=== PATIENT | male | born 1945 | race Caucasian/White ===

== ENCOUNTER 2018-06-02 09:43 | Observation (INO) | payer MEDICARE, BC ==
[2018-06-02] MEDS ORDERED: Ketorolac 30 MG/ML SDV IVPUSH PRN (10:51)
[2018-06-02 11:18] LABS: CHLORIDE,CL 102 mEq/L (98-106); SODIUM,NA 138 mEq/L (136-145)
[2018-06-02] MEDS ORDERED: Nitroglycerin 0.4 MG Tab.SL SL PRN (13:25)
[2018-06-02] MEDS ORDERED: Magnesium Hydroxide 400 MG/5 ML Susp 30 ML Cup PO PRN (13:26)
[2018-06-02] MEDS ORDERED: Temazepam 15 MG Cap PO PRN (13:26)
[2018-06-02] MEDS ORDERED: Ondansetron 4 MG/2 ML SDV IV PRN (13:26)
[2018-06-02] MEDS ORDERED: Acetaminophen 325 MG Tab PO PRN (13:26)
[2018-06-02] MEDS ORDERED: Sodium Chloride 0.9% 1,000 ML IV SCH ×2 (13:30→14:45)
[2018-06-02] MEDS ORDERED: Enoxaparin 40 MG/0.4 ML Syringe SUBCUT SCH (16:00)
[2018-06-02] MEDS ORDERED: Non-Formulary Medication 1 Each (Ticagrelor [Brilinta] 90 MG) PO SCH (20:00)
[2018-06-02] MEDS ORDERED: Simvastatin 20 MG Tab PO SCH (20:00)
[2018-06-02] MEDS: Metoprolol Tartrate 25 MG Tab PO SCH (21:24)
[2018-06-03] MEDS ORDERED: Aspirin 81 MG Tab.EC PO SCH (08:00)
[2018-06-03] MEDS ORDERED: Isosorbide Mononitrate 30 MG Tab.ER PO SCH (08:00)
[2018-06-03] MEDS ORDERED: ISOSORBIDE MONONITRATE 30 MG PO SCH (09:05)
[2018-06-03] MEDS: Metoprolol Tartrate 25 MG Tab PO SCH (09:23)
[2018-06-03] MEDS ORDERED: Polyethylene Glycol 3350 Powder 17 GM Packet PO ONE (09:30)
[2018-06-03] MEDS ORDERED: METOPROLOL TARTRATE 12.5 MG TAB PO SCH (10:00)
--- NOTE | 2018-06-03 11:29 | PCM.DCSUM1 ---
Discharge Summary - Discharge Data Discharge Date: 06/03/18 Discharge Disposition: Home, Self-Care 01 Condition: Good - Patient Summary/Data Consults: Consultations 06/02/18 14:45 Consult to Physical Therapy [PT Evaluation and Treatment] [CONS] Routine - Discharge Plan Home Medications: Home Meds Ascorbic Acid [Vitamin C] 500 mg PO DAILY 05/29/18 [History] Aspirin [Halfprin] 81 mg PO DAILY 05/29/18 [History] Fish Oil/[place]-3 Fatty Acids [Fish Oil 1,000 MG] 1,000 mg PO DAILY 05/29/18 [ History] Isosorbide Mononitrate [Isosorbide Mononitrate ER] 30 mg PO DAILY 05/29/18 [ History] Metoprolol Tartrate 12.5 mg PO BID 05/29/18 [History] Multivitamin [Daily Multiple Vitamin] 1 each PO DAILY 05/29/18 [History] Nitroglycerin 0.4 mg SL ASDIRECTED PRN 05/29/18 [History] Pravastatin Sodium [Pravachol] 40 mg PO BEDTIME 05/29/18 [History] Ticagrelor [Brilinta] 90 mg PO BID 05/29/18 [History] Patient Handouts: Coronary Artery Disease, Male - Patient Data Vitals - Most Recent: Last Vital Signs Temp 97.2 F 06/03/18 07:22 Pulse 89 06/03/18 07:22 Resp 18 06/03/18 07:22 BP 152/92 H 06/03/18 07:22 Pulse Ox 93 L 06/03/18 07:22 Weight - Most Recent: 220 lb Lab Results - Last 24 hrs: Laboratory Results - last 24 hr 06/03/18 Range/Units 08:50 Sodium 137 (136-145) mEq/L Potassium 3.8 (3.5-5.0) mEq/L Chloride 103 (98-106) mEq/L Carbon Dioxide 29 (21-32) mmol/L BUN 24 H (7-18) mg/dL Creatinine 1.6 H (0.7-1.3) mg/dL Est Cr Clr Drug Dosing 43.14 mL/min Estimated GFR (MDRD) 42 L (>=60) mL/min Glucose 91 (75-99) mg/dL Calcium 8.7 (8.4-10.1) mg/dL Magnesium 1.7 L (1.8-2.4) mg/dL Med Orders - Current: Current Medications Acetaminophen (Tylenol) 650 mg PO Q4H PRN PRN Reason: Pain (Mild 1-3)/fever Aspirin (Halfprin) 81 mg PO DAILY [facility] Last Admin: 06/03/18 09:13 Dose: 81 mg Enoxaparin Sodium (Lovenox) 40 mg SUBCUT Q24H [facility] Last Admin: 06/02/18 16:16 Dose: 40 mg Sodium Chloride (Normal Saline) 1,000 mls @ 50 mls/hr IV ASDIRECTED [facility] Last Admin: 06/02/18 14:56 Dose: 50 mls/hr Ketorolac Tromethamine (Toradol) 30 mg IVPUSH Q6H PRN PRN Reason: Pain Magnesium Hydroxide (Milk Of Magnesia) 30 ml PO Q12H PRN PRN Reason: Constipation Nitroglycerin (Nitrostat) 0.4 mg SL ASDIRECTED PRN PRN Reason: Chest Pain Non-Formulary Medication (Ticagrelor [Brilinta]) 90 mg PO BID [facility] Isosorbide (Mononitrate 30 Mg) 30 each PO DAILY [facility] Last Admin: 06/03/18 09:13 Dose: 30 each Metoprolol Tartrate (12.5 Mg Tab) 12.5 each PO BID@1000,2000 [facility] Last Admin: 06/03/18 09:13 Dose: 12.5 each Ondansetron HCl (Zofran) 4 mg IV Q6H PRN PRN Reason: Nausea/Vomiting Simvastatin (Zocor) 20 mg PO BEDTIME [facility] Last Admin: 06/02/18 21:24 Dose: Not Given Temazepam (Restoril) 15 mg PO BEDTIME PRN PRN Reason: Sleep Discontinued Medications Sodium Chloride (Normal Saline) 1,000 mls @ 50 mls/hr IV ASDIRECTED [facility] Isosorbide Mononitrate (Imdur) 30 mg PO DAILY [facility] Last Admin: 06/03/18 09:22 Dose: Not Given Metoprolol Tartrate (Lopressor) 12.5 mg PO BID [facility] Last Admin: 06/03/18 09:23 Dose: Not Given Polyethylene Glycol (Miralax) 17 gm PO ONETIME ONE Stop: 06/03/18 09:31 Last Admin: 06/03/18 09:17 Dose: 17 gm
== END 2018-06-03 12:05 | disposition home or self-care (01) ==
LOC: UNDOADMOB 09:43 → CC.MS 09:43
PROVIDERS: ADMIT Nurse Practitioner Family; ATTEND Family Medicine
DX: R53.83 Other fatigue (principal); R06.02 Shortness of breath; R05 Cough; G44.209 Tension-type headache, unspecified, not intractable; I25.2 Old myocardial infarction; I25.10 Atherosclerotic heart disease of native coronary artery without angina pectoris; Z87.891 Personal history of nicotine dependence; Z79.82 Long term (current) use of aspirin; Z79.899 Other long term (current) drug therapy; Z95.1 Presence of aortocoronary bypass graft
CPT/HCPCS: 36415; 71046; 80048; 80053; 83615; 83735; 83880; 84484; 85025; 85379; 86140; 93005; 96360; 96361; 96372; 97035-GP; 97161-GP; A9270-GY; G0378; J1650; J7030

== ENCOUNTER → 2019-05-28 | Day surgery (SDC) | payer MEDICARE, BC ==
[~2019-05-28] MED LIST: Lactated Ringers 1,000 ML IV SCH; Propofol 200 MG/20 ML SDV IV ONE
--- NOTE | 2019-05-28 12:30 | OR ---
DATE OF OPERATION: 05/28/2019 PREOPERATIVE DIAGNOSIS: HEMATOCHEZIA. POSTOPERATIVE DIAGNOSIS: HEMATOCHEZIA. SURGEON: Mihir Tyler MD PROCEDURE: DIAGNOSTIC COLONOSCOPY WITH FORCEPS POLYP REMOVAL X3. ANESTHESIA: MAC via BROKE HANDLER. COMPLICATIONS: None. SPECIMEN: Three small sessile polyps, all 3 to 4 mm. FINDINGS: 1. Full-length colonoscopy. 2. [id number] sigmoid diverticulosis. 3. Sessile polyps x3, each 3 to 4 mm. 4. Prominent internal hemorrhoids. RECOMMENDATIONS: Followup colonoscopy in 5 years. Routine treatment for hemorrhoidal disease as the likely etiology of this gentleman's symptoms. INDICATIONS: The patient had been having some on and off again bright red blood per rectum at times with bowel movements. Negin Zavala recommended a colonoscopy given it had been over 10 years since his last one. DESCRIPTION OF PROCEDURE: The patient was prepped and draped, placed in the left lateral decubitus position. A lubricated Olympus colonoscope was inserted and easily advanced to the cecum. Direct visualization of the ileocecal valve and appendiceal orifice was accomplished. The bowel prep was adequate. Upon withdrawal of the scope, cecum and essentially ascending colon were essentially benign. The patient had 2 small sessile polyps, 1 right at the hepatic flexure and 1 in the proximal transverse colon. Each were removed with forceps in their entirety with cold biopsy x2. The rest of the transverse colon was unremarkable as was the descending colon. The patient does have prominent diverticulosis mild to moderate in severity with most the rectosigmoid junction. There was a 3rd small sessile polyp around 20 cm in the rectosigmoid junction, removed with a forceps as well with 1 cold biopsy. I found no other signs of polyps, mass, ulceration, or bleeding sites. No vascular abnormalities or signs of colitis. The rectal vault was benign. Retroflexion confirmed very prominent internal hemorrhoid disease without any active bleeding. Air was then suctioned, scope removed without complication. YORDAN/DENISSE /[id number]
== END ==
LOC: CC.SDS 08:44
PROVIDERS: ATTEND Family Medicine
DX: K57.31 Diverticulosis of large intestine without perforation or abscess with bleeding (principal); D12.3 Benign neoplasm of transverse colon; K63.5 Polyp of colon; K64.8 Other hemorrhoids; I25.10 Atherosclerotic heart disease of native coronary artery without angina pectoris; I25.2 Old myocardial infarction; Z88.5 Allergy status to narcotic agent; Z95.5 Presence of coronary angioplasty implant and graft; Z87.891 Personal history of nicotine dependence; Z79.82 Long term (current) use of aspirin; Z79.899 Other long term (current) drug therapy
CPT/HCPCS: 45380; J2704; J7120; 00811; 88305